=== PATIENT | female | born 1995 | race Caucasian/White ===

== ENCOUNTER 2017-11-04 13:43 | Emergency (ER) | payer BC, MEDICAID ==
[~2017-11-04] VITALS: Ht 182.9 cm; Wt 116.5 kg
[2017-11-04 13:45] VITALS: Ht 182.9 cm; Wt 116.5 kg
[2017-11-04] MEDS ORDERED: ONDANSETRON (ODT) 4 MG TAB ODT STA (16:15)
[2017-11-04] MEDS ORDERED: ACETAMINOPHEN 325 MG TAB PO ONE (16:30)
[2017-11-04] MEDS ORDERED: IBUPROFEN 600 MG TAB PO ONE (16:30)
--- NOTE | 2017-11-04 16:42 | ERD ---
ER Documentation Chief Complaint Chief Complaint pan, fever, sob since thursday HPI This is a 21-year-old female that presents to the ER with cough, headache, fever , nausea and vomiting, shortness of breath that started on Thursday. Cough is productive and constant. Patient denies any chest pain. Vomiting is nonbilious nonbloody. She does not have any diarrhea. Headache is throbbing in quality located in her forehead. Headache is nonradiating. This is not the worst headache of her life. Did not get her flu shot. There are no sick contacts at home. ROS 12 point review of systems was done, all negative except per HPI. Medications Home Meds Active Scripts Promethazine Hcl* (Promethazine Hcl* Syrup) 6.25 Mg/5 Ml Syrup, 12.5 MG PO Q6H Y for COUGH for 3 Days, ML Prov:MADDIE BRYANT 11/04/17 Ibuprofen* (Motrin*) 600 Mg Tab, 600 MG PO Q6, #30 TAB Prov:MADDIE BRYANT 11/04/17 Doxycycline Hyclate* (Doxycycline Hyclate*) 100 Mg Tablet.dr, 100 MG PO BID for 7 Days, TAB Prov:MADDIE BRYANT 11/04/17 Oseltamivir Phosphate* (Tamiflu*) 75 Mg Capsule, 75 MG PO BID for 5 Days, CAP Prov:MADDIE BRYANT 11/04/17 Allergies Allergies: Coded Allergies: No Known Allergies (Verified Allergy, Mild, 12/07/12) PMhx/Soc History of Surgery: No Anesthesia Reaction: No Hx Neurological Disorder: No Hx Respiratory Disorders: No Hx Cardiac Disorders: No Hx Psychiatric Problems: No Hx Miscellaneous Medical Probl: No Hx Alcohol Use: No Hx Substance Use: No Hx Tobacco Use: No Physical Exam Vitals Vital Signs Date Time Temp Pulse Resp B/P Pulse Ox O2 Delivery O2 Flow Rate FiO2 11/04/17 13:45 100.7 135 18 136/86 97 Physical Exam GENERAL: The patient is well-developed, well-nourished, in no acute distress. NECK: Cervical spine is non tender with no step off. Supple, no nuchal rigidity HEENT: Atraumatic. Pupils equal, round and reactive to light. Extraocular muscles are grossly intact. Conjunctivae pink, no discharge. Bilateral tympanic membranes are clear with no evidence of erythema, effusion or dulling of the light reflex. Tonsilar erythema with no exudates or uvular deviation. Clear rhinorrhea. RESPIRATORY: Clear to auscultation bilaterally. There are no rales, wheezes or rhonchi. HEART: Regular rate and rhythm. No murmurs, clicks, rubs or gallops. EXTREMITIES: No clubbing or cyanosis. Full range of motion. Grossly neurovascularly intact. NEUROLOGIC: Alert and oriented. Cranial nerves II through XII are intact. SKIN: There is no rash. The skin is warm and dry. Results 24 hrs Current Medications Medications (Trade) Dose Ordered Sig/Skip Route PRN Reason Start Time Stop Time Status Last Admin Dose Admin Ibuprofen (Motrin) 600 mg ONCE ONCE PO 11/04/17 16:30 11/04/17 16:31 DC 11/04/17 16:40 Acetaminophen (Tylenol Tab) 650 mg ONCE ONCE PO 11/04/17 16:30 11/04/17 16:31 DC 11/04/17 16:40 Ondansetron HCl (Zofran Odt) 4 mg ONCE STAT ODT 11/04/17 16:15 11/04/17 16:16 DC 11/04/17 16:40 [place] [id number] Radiology Main Line: [phone] DIAGNOSTIC IMAGING REPORT Patient: MIRANDA BLACKMAN : 1995 Age: 21 Sex: F MR #: [id number] DOS: 11/04/17 0000 Ordering MD: MADDIE BRYANT PA-C Location: [facility] Room/Bed: PROCEDURE: XR Chest. CLINICAL INDICATION: Cough, shortness of breath TECHNIQUE: Single frontal view of the chest was obtained COMPARISON: None FINDINGS: The heart and mediastinum are within normal limits. There is a mild patchy right lower lobe infiltrate. There is no pleural effusion or pneumothorax. RPTAT: AA IMPRESSION: Mild patchy right lower lobe infiltrate. .Damon Iyer MD, Date Time Electronically viewed and signed by .Damon Iyer MD, on 11/04/2017 16: 42 .S/ CC: MADDIE BRYANT Procedures/[facility] This is a 29-year-old female presents to the ER with cough, fever, shortness of breath, nausea and vomiting that started on Thursday. Patient is positive for the flu and does have pneumonia. She will be treated with doxycycline, Tamiflu Profen and promethazine. At this time patient is not hypoxic or in any respiratory distress she did have a low-grade fever upon arrival to the ER, however was easily controlled in the ER. She is otherwise healthy and is young , she is stable for outpatient follow-up. Patient is to follow-up with her primary care doctor within 1-2 days or return to ER sooner if symptoms worsen. Medical decision making shared with the patient she understands and agrees with plan. Departure Diagnosis: Primary Impression: Influenza Additional Impression: Pneumonia Condition: Stable MADDIE BRYANT Nov 04, 2017 16:42
--- NOTE | 2017-11-04 16:42 | RADRPT ---
PROCEDURE: XR Chest. CLINICAL INDICATION: Cough, shortness of breath TECHNIQUE: Single frontal view of the chest was obtained COMPARISON: None FINDINGS: The heart and mediastinum are within normal limits. There is a mild patchy right lower lobe infiltrate. There is no pleural effusion or pneumothorax. RPTAT: AA IMPRESSION: Mild patchy right lower lobe infiltrate. .Damon Iyer MD, MD Date Time Electronically viewed and signed by .Damon Iyer MD, on 11/04/2017 16:42 .S/
[2017-11-04] MEDS ORDERED: OSLT75C PO (17:25)
[2017-11-04] MEDS ORDERED: DOXY100T20 PO (17:25)
[2017-11-04] MEDS ORDERED: IBUP-1542 PO (17:26)
[2017-11-04] MEDS ORDERED: PROM6.25 PO (17:27)
[2017-11-04 17:54] VITALS: TEMP 98.9
== END 2017-11-04 17:55 | disposition home or self-care (01) ==
LOC: FTE 13:43
DX: J10.1 Influenza due to other identified influenza virus with other respiratory manifestations (principal); J18.9 Pneumonia, unspecified organism
CPT/HCPCS: 71010; 87400; Z7502; Z7610

== ENCOUNTER 2019-07-27 21:51 | Emergency (ER) | payer SELFPAY ==
[~2019-07-27] VITALS: Ht 182.9 cm; Wt 129.0 kg
[~2019-07-27 21:51] MED LIST: CEPH-443 PO; DOXY-214 PO; IBUP-1542 PO; IBUP800T48 PO; OSEL75CA23 PO; PROM6.2515 PO; SULF1TAB31 PO
[2019-07-27 22:25] VITALS: Ht 182.9 cm; Wt 129.0 kg
== END 2019-07-28 00:03 | disposition home or self-care (01) ==
LOC: FTE 21:51
DX: L02.31 Cutaneous abscess of buttock (principal)
CPT/HCPCS: 99283